=== PATIENT | male | born 1960 | race African-American/Black ===

== ENCOUNTER 2018-04-09 07:35 | Emergency (ER) | payer MEDICAID ==
[~2018-04-09] VITALS: Ht 170.2 cm; Wt 68.2 kg
[2018-04-09 07:45] VITALS: BP 135/98
== END 2018-04-09 08:19 | disposition home or self-care (01) ==
LOC: EMS 07:36
DX: B35.3 Tinea pedis (principal)

== ENCOUNTER 2019-02-04 10:30 | Emergency (ER) | payer MEDICAID ==
[~2019-02-04] VITALS: Ht 177.8 cm; Wt 65.0 kg
[2019-02-04] MEDS ORDERED: KETOROLAC TROMETHAMINE 60 MG/2 ML VIAL IM ONE (12:15)
[2019-02-04 12:56] VITALS: BP 130/78
== END 2019-02-04 12:57 | disposition home or self-care (01) ==
LOC: EMS 10:31
DX: S43.491A Other sprain of right shoulder joint, initial encounter (principal); G89.29 Other chronic pain; X50.9XXA Other and unspecified overexertion or strenuous movements or postures, initial encounter; Y93.89 Activity, other specified; Y92.89 Other specified places as the place of occurrence of the external cause; Y99.8 Other external cause status
CPT/HCPCS: 96372; 99283; J1885

== ENCOUNTER 2019-07-13 07:23 | Emergency (ER) | payer MEDICAID ==
[~2019-07-13] VITALS: Ht 177.8 cm; Wt 65.9 kg
[2019-07-13] MEDS ORDERED: ACETAMINOPHEN 500 MG TABLET PO ONE (08:00)
[2019-07-13 08:02] VITALS: BP 133/84
== END 2019-07-13 08:24 | disposition home or self-care (01) ==
LOC: EMS 07:28
DX: R10.30 Lower abdominal pain, unspecified (principal)

== ENCOUNTER 2019-08-22 06:52 | Emergency (ER) | payer MEDICAID ==
[~2019-08-22] VITALS: Ht 176.5 cm; Wt 67.3 kg
[2019-08-22 09:20] VITALS: BP 108/65
== END 2019-08-22 09:26 | disposition home or self-care (01) ==
LOC: EMS 06:52
DX: M79.645 Pain in left finger(s) (principal)

== ENCOUNTER 2020-07-12 06:23 | Emergency (ER) | payer MEDICAID ==
[~2020-07-12] VITALS: Ht 172.7 cm; Wt 66.4 kg
[2020-07-12 06:32] VITALS: BP 125/75
[2020-07-12] MEDS ORDERED: CARBAMIDE PEROXIDE 6.5% 15 ML OTIC SOLUTION AU ONE (07:00)
== END 2020-07-12 06:56 | disposition home or self-care (01) ==
LOC: EMS 06:26
DX: H61.23 Impacted cerumen, bilateral (principal); B35.3 Tinea pedis
CPT/HCPCS: 99283

== ENCOUNTER 2020-08-01 14:22 | Emergency (ER) | payer MEDICAID ==
[~2020-08-01] VITALS: Ht 177.8 cm; Wt 61.8 kg
[2020-08-01] MEDS ORDERED: LIDOCAINE 5% TRANSDERMAL PATCH TD ONE (15:30)
[2020-08-01 15:48] VITALS: BP 133/77
== END 2020-08-01 15:49 | disposition home or self-care (01) ==
LOC: EMS 14:46
DX: M54.9 Dorsalgia, unspecified (principal); F17.200 Nicotine dependence, unspecified, uncomplicated; F12.90 Cannabis use, unspecified, uncomplicated
CPT/HCPCS: 99283

== ENCOUNTER 2020-08-03 10:26 | Emergency (ER) | payer MEDICAID ==
[~2020-08-03] VITALS: Ht 177.8 cm; Wt 61.8 kg
[2020-08-03 10:31] VITALS: BP 112/85
[2020-08-03] MEDS ORDERED: ACETAMINOPHEN 500 MG TABLET PO ONE (11:45)
== END 2020-08-03 11:54 | disposition home or self-care (01) ==
LOC: EMS 10:30
DX: M54.5 Low back pain (principal); F12.90 Cannabis use, unspecified, uncomplicated
CPT/HCPCS: 99282; Z7502; Z7610

== ENCOUNTER 2020-09-12 06:39 | Emergency (ER) | payer MEDICAID ==
[~2020-09-12] VITALS: Ht 177.8 cm; Wt 61.8 kg
[2020-09-12 07:30] VITALS: BP 126/64
[2020-09-12] MEDS ORDERED: NAPROXEN 250 MG TABLET PO ONE (07:30)
== END 2020-09-12 07:40 | disposition home or self-care (01) ==
LOC: EMS 06:39
DX: N60.01 Solitary cyst of right breast (principal); F17.200 Nicotine dependence, unspecified, uncomplicated; F12.90 Cannabis use, unspecified, uncomplicated
CPT/HCPCS: 99282; Z7502; Z7610

== ENCOUNTER 2020-12-23 08:29 | Emergency (ER) | payer MEDICAID ==
[~2020-12-23] VITALS: Ht 177.8 cm; Wt 61.8 kg
[2020-12-23] MEDS ORDERED: LIDOCAINE 1% 10 ML VIAL SQ ONE (09:15)
[2020-12-23 10:37] VITALS: BP 135/92
== END 2020-12-23 10:37 | disposition home or self-care (01) ==
LOC: EMS 08:29
DX: N49.2 Inflammatory disorders of scrotum (principal); D29.4 Benign neoplasm of scrotum; F12.90 Cannabis use, unspecified, uncomplicated
CPT/HCPCS: 55100; 99284; J3490; 10160

== ENCOUNTER 2021-02-01 07:32 | Emergency (ER) | payer MEDICAID ==
[~2021-02-01] VITALS: Ht 177.8 cm; Wt 62.7 kg
[2021-02-01 07:35] VITALS: BP 111/74
[2021-02-01] MEDS ORDERED: DOXYCYCLINE HYCLATE 100 MG TABLET PO ONE (08:00)
[2021-02-01] MEDS ORDERED: ONDANSETRON HCL 4 MG TABLET PO ONE (08:00)
== END 2021-02-01 08:08 | disposition home or self-care (01) ==
LOC: EMS 07:39
DX: N49.2 Inflammatory disorders of scrotum (principal); R11.0 Nausea; F99 Mental disorder, not otherwise specified; F12.90 Cannabis use, unspecified, uncomplicated
CPT/HCPCS: 99283; Q0162

== ENCOUNTER 2021-02-03 09:52 | Emergency (ER) | payer MEDICAID ==
[~2021-02-03] VITALS: Ht 170.2 cm; Wt 59.1 kg
[2021-02-03 09:55] VITALS: BP 122/81
[2021-02-03] MEDS ORDERED: KETOROLAC TROMETHAMINE 30 MG/ML VIAL IM ONE (11:15)
== END 2021-02-03 11:34 | disposition home or self-care (01) ==
LOC: EMS 09:52
DX: G89.29 Other chronic pain (principal); M25.511 Pain in right shoulder; F12.90 Cannabis use, unspecified, uncomplicated
CPT/HCPCS: 96372; 99283; J1885

== ENCOUNTER 2021-03-10 12:12 | Emergency (ER) | payer MEDICAID | END 2021-03-10 13:00 | disposition left against medical advice (07) | LOC: EMS 12:13 | DX: Z00.00 Encounter for general adult medical examination without abnormal findings (principal); Z53.21 Procedure and treatment not carried out due to patient leaving prior to being seen by health care provider ==

== ENCOUNTER 2022-03-26 08:41 | Emergency (ER) | payer MEDICAID ==
[~2022-03-26] VITALS: Ht 177.8 cm; Wt 61.4 kg
[2022-03-26] MEDS ORDERED: ACETAMINOPHEN 1000 MG/ISO-OSM 100 ML IV ONE (10:00)
[2022-03-26] MEDS ORDERED: ONDANSETRON HCL 4 MG/2 ML VIAL IVP ONE (10:00)
[2022-03-26] MEDS ORDERED: SODIUM CHLORIDE 0.9% 1,000 ML IV ONE (10:00)
[2022-03-26 10:19] LABS: COVID AG,FIA SOURCE NASAL SWAB
[2022-03-26 10:32] LABS: APPEARANCE,URINE HAZY (CLEAR); BILIRUBIN,URINE NEGATIVE (NEGATIVE); GLUCOSE, URINE (UA) NEGATIVE (NEGATIVE); KETONES,URINE TRACE mg/dL (NEGATIVE); LEUKOCYTE ESTERASE ,URINE NEGATIVE (NEGATIVE); NITRATE,URINE NEGATIVE (NEGATIVE); OCCULT BLOOD,URINE LARGE (NEGATIVE); PROTEIN,URINE 300-600,SEE CONFIRM mg/dL (NEGATIVE); SPECIFIC GRAVITIY, URINE 1.027 (1.003-1.030); UROBILINOGEN,URINE <=1.0 mg/dL (<=1.0)
[2022-03-26 10:37] LABS: AMPHET/METH SCREEN,URINE NEGATIVE (NEGATIVE); BARBITURATE SCREEN, URINE NEGATIVE (NEGATIVE); BENZODIAZEPINES SCREEN,URINE NEGATIVE (NEGATIVE); CANNABINOID SCREEN,URINE POSITIVE (NEGATIVE); COCAINE SCREEN,URINE NEGATIVE (NEGATIVE); METHADONE SCREEN, URINE NEGATIVE (NEGATIVE); OPIATE SCREEN,URINE NEGATIVE (NEGATIVE)
[2022-03-26 10:39] LABS: PHENCYCLIDINE SCREEN,URINE NEGATIVE (NEGATIVE)
[2022-03-26 10:39] LABS: BASOPHILS % (AUTO) 0.2 % (0.0-2.0); EOSINOPHILS % (AUTO) 0 % (1.0-6.0); HEMATOCRIT 40.4 % (41-53); HEMOGLOBIN 13.2 g/dL (13.5-17.5); LYMPHOCYTES # (AUTO) 0.2 K/uL (1.0-4.8); LYMPHOCYTES % (AUTO) 1.4 % (22.0-44.0); MEAN CORPUSCULAR HEMOGLOBIN 29.1 pg (26.0-34.0); MEAN CORPUSCULAR HGB CONC 32.8 G/dL (31.0-37.0); MEAN CORPUSCULAR VOLUME 89 fL (80-100); MONOCYTES # (AUTO) 0.5 K/uL (0.1-1.0); MONOCYTES % (AUTO) 3.3 % (2.0-9.0); NEUTROPHILS # (AUTO) 16.1 K/uL (1.8-7.7); PLATELET COUNT (AUTO) 235 K/uL (150-450); RED BLOOD CELL COUNT(AUTO) 4.54 MIL/uL (4.50-5.90); RED CELL DISTRIBUTION WIDTH 14.5 % (11.5-14.5)
[2022-03-26 10:41] LABS: NEUTROPHILS % (AUTO) 95.1 % (40.0-70.0)
[2022-03-26 10:51] LABS: CALCIUM, TOTAL 9.5 mg/dL (8.8-10.5); CREATININE 1.59 mg/dL (0.60-1.30); POTASSIUM 3.7 mmol/L (3.5-5.1)
[2022-03-26 10:56] LABS: BILIRUBIN,TOTAL 0.4 mg/dL (0.1-1.0); TOTAL PROTEIN, SERUM 9.1 g/dL (6.4-8.2)
[2022-03-26 11:05] LABS: ALBUMIN 3.2 g/dL (3.4-5.0)
[2022-03-26 11:12] LABS: BACTERIA,URINE Moderate /HPF (None Seen); SULFOSALICYLIC ACID,URINE 3+ (Negative)
[2022-03-26 11:13] LABS: HYALINE CASTS, URINE 0-2 /LPF (None Seen)
[2022-03-26 11:25] LABS: INFLUENZA TYPE A NEGATIVE FOR TYPE A (NEGATIVE); INFLUENZA TYPE B NEGATIVE FOR TYPE B (NEGATIVE)
[2022-03-26] MEDS ORDERED: CefTRIAXone 1 GM/DEXTROSE 50 ML IV ONE (12:15)
[2022-03-26 13:39] VITALS: BP 134/87
[2022-03-26] MEDS ORDERED: AZITHROMYCIN 500 MG/NS 250 ML IV ONE (14:15)
== END 2022-03-26 14:34 | disposition left against medical advice (07) ==
LOC: EMS 09:51
DX: N39.0 Urinary tract infection, site not specified (principal); J18.9 Pneumonia, unspecified organism; Z98.890 Other specified postprocedural states; Z20.822 Contact with and (suspected) exposure to COVID-19
CPT/HCPCS: 99285; 74176; 96365; 71045; 96367; 96375; 87426; 80053; 81001; 83690; 85025; 87040; 87804; 87086; 87186; 93005; 36415; 80307 ×2; J0696; J2405; J7030; J0131; 81002

== ENCOUNTER 2023-05-14 07:34 | Emergency (ER) | payer MEDICAID ==
[~2023-05-14] VITALS: Ht 170.2 cm; Wt 63.6 kg
[2023-05-14 07:37] VITALS: BP 121/86; PULSE 96; RESP 18; TEMP 97.7
== END 2023-05-14 08:08 | disposition home or self-care (01) ==
LOC: EMS 07:40
DX: R22.1 Localized swelling, mass and lump, neck (principal); K61.1 Rectal abscess
CPT/HCPCS: 99281; Z7502